=== PATIENT | female | born 1990 | race African-American/Black ===

== ENCOUNTER 2016-08-19 22:46 | Emergency (ER) | payer SELFPAY ==
[~2016-08-19] VITALS: Ht 160 cm; Wt 60.4 kg
[2016-08-20 02:57] LABS: CLARITY URINE CLEAR (CLEAR); COLOR URINE YELLOW (YELLOW); GLUCOSE URINE NEGATIVE (NEGATIVE); KETONES URINE NEGATIVE (NEGATIVE); LEUKOCYTE ESTERASE URINE 2+ (NEGATIVE); NITRITE URINE NEGATIVE (NEGATIVE); OCCULT BLOOD URINE NEGATIVE (NEGATIVE); PH URINE 5.5 (4.5-8.0); PROTEIN URINE NEGATIVE (NEGATIVE); SPECIFIC GRAVITY URINE 1.016 (1.005-1.030)
[2016-08-20 03:17] LABS: BACTERIA URINE TRACE; RBC URINE 0-2 /hpf (0-2); SQUAMOUS EPITHELIAL CELL URINE FEW /lpf (RARE/1+)
[2016-08-20] MEDS ORDERED: POVIDONE-IODINE 10% TOPICAL SOLN 240ML TOP ONE (03:30)
[2016-08-20] MEDS ORDERED: LIDOCAINE HCL 1% 20ML VIAL (Pyxis) INJ INFIL ONE (03:30)
[2016-08-20 05:41] VITALS: BP 121/69
[2016-08-20 05:50] LABS: HCG SCREEN NEGATIVE
== END 2016-08-20 09:05 | disposition home or self-care (01) ==
LOC: ER 08-20 07:46
DX: N39.0 Urinary tract infection, site not specified (principal)
CPT/HCPCS: 56405; 81001; 81025; 84703; 99284; A4246; J3490; Z7610